=== PATIENT | male | born 1995 | race Caucasian/White ===

== ENCOUNTER 2022-02-17 17:36 | Emergency (ER) | payer OTHER, SELFPAY ==
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
[2022-02-17 17:46] VITALS: BP 163/97; PULSE 100; RESP 16; TEMP 36.5; O2SAT 97
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
[2022-02-17 18:45] VITALS: BP 168/111; PULSE 104; RESP 18; TEMP 37.1; O2SAT 97
== END 2022-02-17 18:45 | disposition home or self-care (01) ==
PROVIDERS: Emergency Provider Internal Medicine Critical Care Medicine
DX: M25.512 Pain in left shoulder (principal); V43.52XA Car driver injured in collision with other type car in traffic accident, initial encounter
CPT/HCPCS: 73030; 99283

== ENCOUNTER 2022-06-13 07:20 | Outpatient (CLI) | payer OTHER, SELFPAY ==
--- NOTE | ~2022-06-13 | CT_ITS ---
EXAMINATION: CT abdomen pelvis w con DATE: 06/13/2022 08:26 INDICATION: Periumbilical discomfort. Suspected hernia. TECHNIQUE: Computed tomography (CT) of the abdomen and pelvis was performed with 100 cc Omnipaque 350 intravenous contrast. The dose-length product was 1565.89 mGy-cm. Automated exposure control and ite rative reconstruction technique were employed. COMPARISON: No prior studies for comparison. FINDINGS: The lung bases are unremarkable. Heart size is normal. No significant pleural or pericardia l effusion. No significant vascular abnormality. No lymphadenopathy. There is a fat-containing suprau mbilical hernia at the midline. Fatty infiltration of the liver. The spleen, pancreas, adrenal glands and kidneys are unremarkable. N ormal appendix. Nonobstructive bowel pattern. No abnormal pelvic masses or fluid collections. Colonic diverticulosis. There are subtle infiltration of the pericolonic fat in the distal descending colon. Cannot exclude mild uncomplicated acute diverticulitis. IMPRESSION: 1. Subtle infiltration of the pericolonic fat with nearby diverticula in the distal descending colon. Cannot exclude mild uncomplicated acute diverticulitis. 2: Fat-containing supraumbilical hernia. 3: Hepatic steatosis. Reviewed, dictated and finalized at location A. IMPRESSION: 1. Subtle infiltration of the pericolonic fat with nearby diverticula in the di stal descending colon. Cannot exclude mild uncomplicated acute diverticulitis. 2: Fat-containing supraumbilical hernia. 3: Hepatic steatosis.
[2022-06-13 07:46] LABS: Estimated Glomerular Filt Rate > 60
== END 2022-06-13 07:21 | disposition home or self-care (01) ==
PROVIDERS: PCP Internal Medicine; Visit Provider Internal Medicine
DX: R10.32 Left lower quadrant pain (principal); R10.33 Periumbilical pain
CPT/HCPCS: 74177; Q9967

== ENCOUNTER 2025-06-10 12:05 | Outpatient (CLI) | payer OTHER, SELFPAY ==
--- OUTSIDE RECORDS SUMMARY | 2025-06-10 12:20 | XMS_ITS | Clinical Summary ---
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 Role Phone Unavailable Primary Care Provider Unavailabl e Social History Tobacco Use Types Packs/Day Years Used Date Smoking Tobacco: Never Assessed Sex and Gender Information Value Date Recorded Sex Assigned at Not on file Legal Sex Male 6:29 AM CDT Gender Identity Not on file Sexual Orientation Not on file Last Filed Vital Signs Vital Sign Reading Time Taken Comments Blood Pressure 146/100 03/10/2022 8:17 AM CDT Pulse - - Temperature - - Respiratory Rate - - Oxygen Saturation - - Inhaled Oxygen Concentration - - Weight 122.9 kg (271 lb) 03/10/2022 8:17 AM CDT Height 172.7 cm (5' 8) 03/10/2022 8:17 AM CDT Body Mass Index 41.21 03/10/2022 8:17 AM CDT Plan of Treatment Health Maintenance Due Date Last Done Comments DTAP/TDAP/TD VACCINES (1 - Tdap) 2014 HEPATITIS B VACCINES (1 of 3 - 19+ 3-dose series) 01/09 HPV VACCINES (1 - 3-dose SCDM series) 2022 INFLUENZA VACCINE (#1) 2025 Insurance ALLEGIANCE OPEN ACCESS
--- NOTE | 2025-06-10 12:21 | ECG_ITS ---
Test Date: 2025-06-10 12:40:50 Measurements Intervals Mobile Rate: 66 P: 9 MS: 137 QRS: 70 QRSD: 98 T: 31 QT: 378 QTc: 397 Interpretive Statements SINUS RHYTHM WITH MARKED RHYTHM IRREGULARITY, POSSIBLE NON-CONDUCTED PAC, SA BLOCK, AV BLOCK, OR SINUS PAUSE ABNORMAL RHYTHM ECG WARNING: DATA QUALITY MAY AFFECT INTERPRETATION No previous ECG available for comparison Electronically Signed On 06-10-2025 14:45:10 CDT by Wendy Joseph M.D.
[2025-06-10 13:10] LABS: Anion Gap 11 mmol/L (4-12); Blood Urea Nitrogen 15 mg/dL (9-20); Calcium 9.5 mg/dL (8.4-10.2); Carbon Dioxide 26 mmol/L (22-30); Chloride 100 mmol/L (98-107); Estimated Glomerular Filt Rate > 60; Glucose 98 mg/dL (65-110); Potassium 3.7 mmol/L (3.4-5.0); Sodium 137 mmol/L (137-145)
== END 2025-06-10 12:06 | disposition home or self-care (01) ==
LOC: ANHSURGERY 12:18
PROVIDERS: Anesthesiology; PCP Internal Medicine; Visit Provider Surgery
DX: Z01.818 Encounter for other preprocedural examination (principal); K43.9 Ventral hernia without obstruction or gangrene; I10 Essential (primary) hypertension; Z79.899 Other long term (current) drug therapy
CPT/HCPCS: 36415; 80048; 86850; 86900; 86901; 93005

== ENCOUNTER 2025-06-17 00:56 | Day surgery (SDC) | payer OTHER, SELFPAY ==
[2025-06-09 11:16] VITALS: BMI 38.0
--- NOTE | 2025-06-09 11:17 | PC.NURSE ---
[facility] has started construction of its new state of the art ER which will open Spring 2026. With this, we anticipate parking may be a challenge for some our surgical patients and families. Parking spaces are limited but are available for all Surgical, obstetrics, and ER patients sharing this lot. If you arrive and find you are having a hard time finding a parking space, please note that we understand the challenges, please drive around the hospital and park near Hospital Entrance 1. When you enter this entrance, you can ask a volunteer to direct or take you back to the surgical waiting area to check in. We appreciate everyone?s understanding of these expected challenges while we build for your future. Report to the Outpatient Waiting Room, entrance under the green pavilion located off [address], at time _1000_ on date _[id number]_. Planned Procedure Time: _1200_.? Time changes happen often and if your time is changed the preop area will call you the afternoon before. - You and your visitor will be asked to self-screen and do not enter if you have any COVID symptoms. Please call surgeon if you need to reschedule. - A mask is optional within the hospital at this time. Patients may have clear liquids (water, carbonated beverages, clear teas, apple juice) until 3 hours prior to surgery with a maximum of 20 ounces. - No food from midnight until time of surgery and no smoking, or chewing tobacco (or any form of nicotine). No chewing gum, candy or mints. Take only the following medications with a SIP of water on the morning of surgery: ___Amlodipine DO NOT STOP ANY OF YOUR OTHER PRESCRIPTION MEDICATIONS PRIOR TO SURGERY EXCEPT THE FOLLOWING Hold all vitamins and supplements for 3 days per anesthesiologist. Medications to discontinue per physician ____Patient stopped Zepboud with last dose [id number] Date to take last dose Please no make-up, nail martiniquais, hairspray, perfume, deodorant, or body powder the day of surgery.? No jewelry (including any body piercings) or valuables the day of surgery, leave them at home.? Please take a shower or bath the night before, or the morning of, surgery with an antibacterial soap.? Wear comfortable, loose fitting clothing.? - Jewelry must be removed prior to entering the operating room.? Rings and piercings that are not removed may be cut off. - The hospital will not accept responsibility for valuables.? - Please leave all valuables, including medications, at home the day of surgery. If you are going home after surgery, a licensed truck driver instructor must drive you home.? - NO public transportation without another adult if you receive anesthesia. - We recommend that an adult stay with you for 24 hours following discharge. - We also recommend that you do not drive, make important decision, drink alcoholic beverages, or take any drugs that were not prescribed by your health care provider for at least 24 hours after your discharge time. Follow any additional instructions given to you from your surgeon. Telephone instructions given to __Luis Manuel__and asked if any additional questions and then verbalized understanding. Patient advised to call surgeon office or pre surgery nurse liaison [phone] if any additional questions.
[2025-06-17] VITALS (11 sets, daily range): BP systolic 117–148; BP diastolic 71–87; PULSE 58–108; RESP 16–20; TEMP 36.1–36.8; O2SAT 93–100; BMI 37.5
[2025-06-17] MEDS: KETOROLAC 15 MG/ML VIAL (*BKC) IV PUSH (11:10)
[2025-06-17] MEDS: ACETAMINOPHEN 500 MG TABLET 1000 MG PO (11:10)
--- NOTE | 2025-06-17 11:39 | WPDHPUPDATE1 ---
History and Physical Update Update Date/Time: 06/17/25 11:39 History and Physical has been reviewed, including an updated exam of the patient. There are NO changes in the patient's condition. Risks, benefits, and alternatives have been discussed and questions answered. Patient agrees to proceed with procedure.
--- NOTE | 2025-06-17 11:39 | PM.IMHP ---
H&P: HPI History of Present Illness Date/Time: 06/17/25 11:39 Chief Complaint: Ventral hernia Narrative: 30 yo man present for ventral hernia repair. He reports no changes since last seen in office. Review of Systems Review of Systems: All systems reviewed & are unremarkable except as noted in HPI and below Constitutional: Constitutional: Denies chills, Denies fever(s), Denies headache(s) and Denies weight loss Eyes: Eyes: Denies change in vision ENT: Denies dizziness, Denies headache(s), Denies neck mass and Denies throat swelling Cardiovascular: Cardiovascular: Denies chest pain, Denies lightheadedness and Denies dyspnea Respiratory: Respiratory: Denies cough, Denies dyspnea and Denies wheezing Gastrointestinal: Gastrointestinal: Denies abdominal pain, Denies change in bowel habits, Denies nausea and Denies vomiting Genitourinary: Genitourinary: Denies hematuria and Denies dysuria Musculoskeletal: Musculoskeletal: Reports as per HPI Integumentary/Breasts: Skin/Breast: Reports as per HPI Neurologic: Denies dizziness and Denies headache(s) Allergic/Immunologic: Allergic/Immunologic: Denies throat swelling and Denies wheezing [facility] Family History Family History (Updated 05/01/25 @ 10:09 by Arpita Nazario MA) Grandparent Cerebrovascular accident Diabetes mellitus Hypertension History of breast cancer History of colon cancer History of throat cancer Social History Social History (Updated 05/01/25 @ 10:17 by Arpita Nazario MA) Smoking status: Never smoker Alcohol intake: current Substance use: current Substance use type: marijuana Other substance usage details: Daily Do You Feel Safe in your Home?: Yes Lack of Transportation: No Lack of Food: Never True Current Housing: I Have Housing Concerned About Future Housing: No Difficulty Paying Gas/Electric Bills: No Difficulty Paying for Meds: No Currently Unemployed: No Education: Associate Degree Difficulty w/ Childcare or Family Care: No Living arrangements: with family Spiritual care concerns: No Meds Home Medications and Allergies Home Medications ?Medication ?Instructions ?Recorded ?Confirmed ?Type amlodipine 5 mg tablet 5 mg PO DAILY 05/01/25 06/17/25 History atorvastatin 10 mg tablet (Lipitor) 10 mg PO DAILY 05/01/25 06/09/25 History losartan 100 1 tablet PO DAILY 05/01/25 06/09/25 History mg-hydrochlorothiazide 12.5 mg tablet tirzepatide (weight loss) 15 15 mg subcut WEEKLY 05/01/25 06/09/25 History mg/0.5 mL subcutaneous pen injector (Zepbound) Allergies Allergy/AdvReac Type Severity Reaction Status Date / Time No Known Allergies Allergy Verified 06/17/25 10:43 Vital Signs Vital Signs - 24 hr 06/17/25 10:00 Temperature 98.3 F Pulse Rate 100 Respiratory Rate 16 Blood Pressure 134/87 Pulse Oximetry 99 Oxygen Delivery Room Air Exam Const: General: no acute distress and alert Orientation/consciousness: patient oriented x3 HENMT: Head: normocephalic and atraumatic Ears: hearing grossly normal bilaterally Face/Nose/Sinus: Normal nares present Mouth: Yes Normal oral and palatal mucosa present Eyes: Periorbital: periorbital findings normal Sclera: sclerae normal EOM: EOMs intact bilaterally Neck: Neck: normal visual inspection, no lymphadenopathy and trachea midline Chest: Chest palpation & inspection: normal inspection of the chest Resp: Effort & Inspection: normal respiratory effort Auscultation: clear to auscultation bilaterally Cardio: Jugular venous distension: no JVD Rate: regular rate Rhythm: regular rhythm Heart sounds: S1 normal heart sound present and S2 normal heart sound present Peripheral pulses: Peripheral pulses 2+ throughout GI: Inspection: normal to inspection GI Palp: Yes Soft to palpation, No Tenderness to palpation present (GI), No Guarding due to palpation present (GI), Yes Hernia present ventral 3-10 cm and No Rebound tenderness present Percussion: Yes normal to percussion Auscultation: normal bowel sounds : General: Yes no CVA tenderness Back/Spine/Pelvis: Back: no CVA tenderness Neuro: General: patient oriented x3, no focal motor deficits and CN's II-XI intact bilaterally Cognition (Neuro): normal cognition Speech: normal speech Motor exam (neuro): 5/5 motor strength present throughout Extrem: General: capillary refill normal and no clubbing, cyanosis or edema Assessment and Plan Assessment and plan (1) Ventral hernia: Qualifiers: Obstruction and gangrene presence: without obstruction or gangrene Qualified Code(s): K43.9 - Ventral hernia without obstruction or gangrene Code(s): K43.9 - Ventral hernia without obstruction or gangrene Status: Acute Assessment and Plan: I have recommended laparoscopic ventral hernia repair with mesh, da Chelle assisted. I have discussed the procedure, risks, benefits, and alternatives with the patient. All questions answered. No changes since last seen in office.
--- NOTE | 2025-06-17 12:18 | P.PNAN_ITS ---
Anes - Initial Pre Proc Eval Procedure: Operation Date: 06/17/25 12:00 Proposed Procedures p Laparoscopic Ventral Hernia Repair with Mesh, DaVinci Assisted - Fred Liu DO Date/Time: 06/17/25 12:18 Surgeon: Fred Liu DO Pre Op Diagnosis: Ventral Hernia Patient Data Age: 30 Gender: M Height: 1.73 m Weight: 112 kg Last Vital Signs Temp 98.3 F 06/17/25 10:00 Pulse 100 06/17/25 10:00 Resp 16 06/17/25 10:00 BP 134/87 06/17/25 10:00 Pulse Ox 99 06/17/25 10:00 O2 Del Method Room Air 06/17/25 10:00 Allergies Allergy/AdvReac Type Severity Reaction Status Date / Time No Known Allergies Allergy Verified 06/17/25 10:43 Home Medications ?Medication ?Instructions ?Recorded ?Confirmed ?Type amlodipine 5 mg tablet 5 mg PO DAILY 05/01/2506/17 History atorvastatin 10 mg tablet (Lipitor) 10 mg PO DAILY 06/09/25 History losartan 100 1 tablet PO DAILY 05/01/25 0 06/09/25 History mg-hydrochlorothiazide 12.5 mg tablet tirzepatide (weight loss) 15 15 mg subcut WEEKLY 05/0106/09/25 History mg/0.5 mL subcutaneous pen injector (Zepbound) Patient hx anesthesia problems: post op nausea/vomiting (family.) Family hx anesthesia problems: none Results Review: All pre-operative results and documents have been reviewed as part of the pre- operative evaluation. [facility] Family History Family History Grandparent Cerebrovascular accident Diabetes mellitus Hypertension History of breast cancer History of colon cancer History of throat cancer Social History Social History Smoking status: Never smoker Alcohol intake: current Substance use: current Substance use type: marijuana Other substance usage details: Daily Do You Feel Safe in your Home?: Yes Lack of Transportation: No Lack of Food: Never True Current Housing: I Have Housing Concerned About Future Housing: No Difficulty Paying Gas/Electric Bills: No Difficulty Paying for Meds: No Currently Unemployed: No Education: Associate Degree Difficulty w/ Childcare or Family Care: No Living arrangements: with family Spiritual care concerns: No Anes - Eval Final PreProcedure Day of Procedure 06/17/25 12:18 Patient weight: obese Lungs: normal air movement Airway: Mallampati scale class II Neurological: alert and oriented Last oral intake: >/= 8 hours ASA classification: III Emergent: no Anesthetic plan: proceed Anesthesia type and monitoring: general ETT and standard monitoring Results Review: All pre-operative results and documents have been reviewed as part of the pre- operative evaluation. HTN, hyperlipidemia, BMI 37, on GLP1 off since 06/02/25. Informed Consent: The patient's anesthetic plan and its attendant risks and benefits were discussed with the patient/family/POA. Questions were solicited and answers provided to the satisfaction of the patient/family/POA.
[2025-06-17] MEDS: ceFAZolin 2 GM in SODIUM CHLORIDE 0.9% IV 50 ML 100 ML IVPB (12:28)
[2025-06-17] MEDS: BUPIVACAINE/EPINEPHRINE 0.5% 50 ML VIAL 30 ML INFILTRATE (12:58)
--- NOTE | 2025-06-17 14:50 | W.PM.PROC2 ---
Procedure Note - Detailed Date of Procedure 06/17/25 Pre-op Diagnosis Ventral Hernia Post-op Diagnosis Same (5 cm ventral hernia) Procedure Performed Laparoscopic 5 cm ventral hernia repair with mesh, da Chelle assisted Surgeon Fred Liu, Anesthesia General and Local (0.5% bupivacaine with epinephrine) Indications This is a 30-year-old man who presented with an upper abdominal hernia that had increased in size over time. He was losing weight and delay repairing the hernia until he felt like he had gotten to an appropriate weight goal. His body mass index is now below 40 she and he would like to proceed with surgery. He was found to have a fairly large ventral hernia superior to his umbilicus. Discussions were made with the patient about treatment options and decision was made to proceed with robotic assisted laparoscopic ventral hernia repair with mesh. Findings Robotic assisted laparoscopic 5 cm ventral hernia repair with mesh was performed. The patient was found to have a reducible ventral hernia containing a fairly large amount of omentum. The omentum was reduced with gentle retraction and the hernia defect was clearly visualized. The hernia defect was 5 cm wide and was about 5 cm cephalad to the umbilicus. A robotic transabdominal preperitoneal approach was utilized for repair. Once a wide enough preperitoneal pocket was created I then closed the fascial edges using 1 Stratafix running absorbable suture. A Ventralight ST 15 cm x 10 cm mesh was then placed. No specimens were obtained for pathology. Description of Procedure Procedure as well as risks, benefits, and alternatives were discussed with the patient. Written consent was obtained and placed in chart prior to procedure. Patient was brought back to surgical suite. He was placed supine on operating table. Time-out was done to confirm patient and procedure. He was then intubated by the anesthesia department. A bump was placed under his left hip, and the bed was flexed slightly to extend the space between his costal margin and iliac crest. His abdomen was prepped and draped in sterile fashion using chlorhexidine prep. A 5 millimeter incision was made in the left upper quadrant, and a 5 millimeter Optiview trocar was advanced through the abdominal layers under direct visualization. Once inside the abdominal cavity, carbon dioxide insufflation was used to create a pneumoperitoneum. His abdomen was inspected. An 8 millimeter incision was made in the left lower quadrant, and an 8 millimeter robotic trocar was placed under direct visualization. Another 8 millimeter incision was made in the left lateral abdomen, and an 8 millimeter robotic trocar was placed under direct visualization. 0.5% bupivacaine with epinephrine was infiltrated around each port site. The 5 millimeter port was removed, and an 8 mm robotic trocar was placed under direct visualization. The robotic arms were brought up to the patient's bedside and secured to the ports. The camera and instruments were inserted, and I then moved over to the robotic console and took control of the camera and instruments. After careful thorough inspection of the abdominal cavity, I began my dissection at the hernia. The omentum was carefully reduced using blunt dissection. I then began creating a preperitoneal pocket in the left upper quadrant using scissors with electrocautery. This was developed caudally to the left lower quadrant and then the dissection was carried out medially. The hernia sac was reduced and then the dissection was carried out to the right lateral abdomen. The preperitoneal pocket appeared wide enough for repair and mesh placement. I then measured the hernia size. The hernia measured 5 cm. The fascia was closed using an 1-Stratafix running suture in a vertical fashion. A Ventralight ST 15 cm x 10 cm mesh was then placed within the preperitoneal pocket. This was oriented vertically with the mesh centered on the hernia defect. The mesh was then secured at the center and 4 corners using 3-0 Vicryl simple interrupted sutures. The peritoneum was then closed over the mesh using 3 0 V lock running absorbable suture. There was also fairly large hole the peritoneum from where the hernia sac was reduced and this was closed by using a portion of the hernia sac to reapproximate the peritoneal edges with another 3 0 V lock running absorbable suture. The repair was inspected, and one final inspection was made around the abdominal cavity. The robotic instruments were then removed, and the robotic arms were disengaged from the trocars. The ports were then removed under direct visualization, the camera was removed, and the pneumoperitoneum was released. The skin of the incisions was then approximated using 4-0 Monocryl subcuticular suture. Exofin glue was then applied on top. The patient was then awakened from anesthesia, extubated, and transferred to recovery. Implants Ventralight ST 15 cm x 10 cm mesh Estimated Blood Loss 10 Complications No immediate complications Condition Stable Disposition [place] [facility] [place] - Charge Forward: Surgery Billing
[2025-06-17] MEDS: LACTATED RINGERS 1,000 ML 30 ML IV CONT ×2 (15:03)
[2025-06-17] MEDS: fentaNYL CITRATE INJ (*CRX) 100 MCG/2 ML VIAL 25 MCG IV PUSH ×4 (15:44→16:02)
[2025-06-17] MEDS: oxyCODONE HCL (*CRX) 5 MG TAB IR PO (16:47)
== END 2025-06-17 17:50 | disposition home or self-care (01) ==
PROVIDERS: PCP Internal Medicine; Visit Provider Surgery
PROC: (CPT 49593; principal; 2025-06-17 12:00)
DX: K43.9 Ventral hernia without obstruction or gangrene (principal); I10 Essential (primary) hypertension; E78.5 Hyperlipidemia, unspecified; F12.90 Cannabis use, unspecified, uncomplicated; E66.9 Obesity, unspecified; Z68.37 Body mass index [BMI] 37.0-37.9, adult; Z79.85 Long-term (current) use of injectable non-insulin antidiabetic drugs; Z79.899 Other long term (current) drug therapy; Z80.3 Family history of malignant neoplasm of breast; Z80.0 Family history of malignant neoplasm of digestive organs; Z80.1 Family history of malignant neoplasm of trachea, bronchus and lung
CPT/HCPCS: 49593; S2900; J0690; A9270; C1781; J1100; J1885; J2003; J2250; J2405; J2704; J3010; J7030; J7120